=== PATIENT | female | born 1975 | race Caucasian/White ===

== ENCOUNTER 2016-09-29 16:26 | Emergency (ER) | payer OTHER ==
[2016-09-29] MEDS ORDERED: Ibuprofen 600 MG TAB ONE (19:33)
[2016-09-29] MEDS ORDERED: FLUCONAZOLE 150 MG TAB PO ONE (19:40)
== END 2016-09-29 20:33 | disposition home or self-care (01) ==
LOC: ER 16:26
CPT/HCPCS: 36415; 80053; 81001; 83690; 84703; 85025; 87088; 87491; 87591; 87800